=== PATIENT | male | born 1940 | race Asian ===

== ENCOUNTER → 2016-10-23 | Outpatient (CLI) | payer MEDICARE, OTHER ==
[~2016-10-23] MED LIST: ALBU8.5H IH; ASPI-556 PO; BUME1TAB30 PO; CALC500T62 PO; ERGO400C PO; FERR-89 PO; INSNOV SQ; ISOS30TA6 PO; LOSA50TA37 PO; METO-325 PO; PROM25 PO; RANI150T7 PO; ROSU5TAB3 PO
== END | disposition home or self-care (01) ==
LOC: RADMN 10:28
PROVIDERS: ATTEND Family Medicine
DX: M25.511 Pain in right shoulder (principal)
CPT/HCPCS: 73221

== ENCOUNTER → 2016-11-27 | Outpatient (CLI) | payer MEDICARE, OTHER ==
[~2016-11-27] MED LIST changes: -FERR-89 PO; +FERS325 PO
== END | disposition home or self-care (01) ==
LOC: RADPV 10:28
PROVIDERS: ATTEND Internal Medicine Nephrology
DX: M79.89 Other specified soft tissue disorders (principal); R60.0 Localized edema; M25.862 Other specified joint disorders, left knee; M25.861 Other specified joint disorders, right knee
CPT/HCPCS: 93970

== ENCOUNTER → 2017-05-28 | Outpatient (CLI) | payer MEDICARE, OTHER ==
[~2017-05-28] MED LIST changes: -ALBU8.5H IH; +ALBU8.5H8 IH; +BUME1TAB17 PO; -BUME1TAB30 PO; +FERR-89 PO; -FERS325 PO; -METO-325 PO; +METO-558 PO; +ROSU5TAB PO; -ROSU5TAB3 PO
== END | disposition home or self-care (01) ==
LOC: RADPV 08:56
PROVIDERS: ATTEND Internal Medicine Nephrology
DX: N18.9 Chronic kidney disease, unspecified (principal)
CPT/HCPCS: 76700

== ENCOUNTER → 2020-02-21 | Outpatient (CLI) | payer MEDICARE, OTHER ==
[~2020-02-21] MED LIST changes: -BUME1TAB17 PO; +BUME1TAB34 PO; -LOSA50TA37 PO; +LOSA50TA65 PO
== END | disposition home or self-care (01) ==
LOC: RADPV 15:01
PROVIDERS: ATTEND Podiatrist Foot & Ankle Surgery
DX: M77.31 Calcaneal spur, right foot (principal); M19.90 Unspecified osteoarthritis, unspecified site; M25.571 Pain in right ankle and joints of right foot

== ENCOUNTER → 2023-05-26 | Outpatient (CLI) | payer MEDICARE, OTHER ==
[~2023-05-26] MED LIST changes: -FERR-89 PO; +FERR325T27 PO; -ISOS30TA6 PO; +ISOS30TA92 PO; +PROM-223 PO; -PROM25 PO
[2023-05-26 13:29] LABS: CALCIUM, TOTAL 8.3 mg/dL (8.8-10.5); CREATININE 1.38 mg/dL (0.60-1.30); POTASSIUM 3.9 mmol/L (3.5-5.1)
[2023-05-26 13:32] LABS: HEMOGLOBIN A1C 7.9 % (3.8-5.6)
[2023-05-26 13:42] LABS: CREATININE,URINE RANDOM 42.8 mg/dL (30.0-125.0)
[2023-05-27 09:07] LABS: PARATHYROID HORMONE INTACT 40 pg/mL (15-65)
== END | disposition home or self-care (01) ==
LOC: LABMN 12:29
PROVIDERS: ATTEND Internal Medicine Nephrology
DX: E11.22 Type 2 diabetes mellitus with diabetic chronic kidney disease (principal); N18.30 Chronic kidney disease, stage 3 unspecified; R80.9 Proteinuria, unspecified
CPT/HCPCS: 80048; 82570; 83036; 83970; 84156